=== PATIENT | female | born 1990 | race Caucasian/White ===

== ENCOUNTER 2016-04-04 22:24 | Emergency (ER) | payer MEDICARE, OTHER ==
[~2016-04-04] VITALS: Ht 167.6 cm; Wt 54.5 kg
[~2016-04-04 22:24] MED LIST: ATOR10TA65 PO; BUPR100T6 PO; CLON-412 PO; CYCL-319 PO; HYDR-762 PO; LISI-313 PO; METO25TA4 PO; OMEP20CA9 PO; RIS1 PO; ZOLP10TA PO
[2016-04-04 22:38] VITALS: Ht 167.6 cm; Wt 54.5 kg
--- NOTE | 2016-04-04 23:28 | RADRPT ---
AMENDMENT: 04/04/2016 11:32:06 PM Mazin Riddle MD ADDENDUM: COMPARISON: Plain film chest dated 08/21/2015. FINDINGS: No significant blade changer interval since 08/21/2015. PROCEDURE: XR Chest. CLINICAL INDICATION: Chest pain. TECHNIQUE: Single frontal view of the chest was obtained COMPARISON: None FINDINGS: The heart and mediastinum are within normal limits. The lungs are clear. There is no pleural effusion or pneumothorax. IMPRESSION: No acute disease. RPTAT: [facility] Physician Beau Date Time Electronically viewed and signed by Stalin Riddle Physician on 04/04/2016 23:32 RS/
[2016-04-04 23:31] LABS: HEMATOCRIT 38.2 % (37.0-47.0); HEMOGLOBIN 13.1 g/dl (12.0-16.0); MEAN CORPUSCULAR HEMOGLOBIN 31.6 pg (29.0-33.0); MEAN CORPUSCULAR HGB CONC 34.4 g/dl (32.0-37.0); MEAN CORPUSCULAR VOLUME 91.8 fl (82.0-101.0); MEAN PLATELET VOLUME 8.7 fl (7.4-10.4); PLATELET COUNT 244 10^3/UL (140-440); RED BLOOD COUNT 4.16 10^6/ul (4.20-5.40); RED CELL DISTRIBUTION WIDTH 13.2 % (11.5-14.5)
[2016-04-04 23:37] LABS: ALBUMIN 4.5 g/dl (3.3-4.9); CONDITION 1; LH ANALYZER COMMENTS 1; POTASSIUM 4.6 mmol/L (3.5-5.1)
[2016-04-04 23:39] LABS: CREATININE 0.61 mg/dl (0.44-1.00)
[2016-04-04 23:40] LABS: ALBUMIN/GLOBULIN RATIO 1.8; BILIRUBIN,INDIRECT 0.2 mg/dl (0-1.1); BILIRUBIN,TOTAL 0.2 mg/dl (0.2-1.3); CALCIUM 9.1 mg/dl (8.4-10.2)
[2016-04-04 23:42] LABS: INR 0.98
[2016-04-04 23:43] LABS: PARTIAL THROMBOPLASTIN TIME 29.9 Sec (25.0-35.0)
[2016-04-04] MEDS ORDERED: ALBUTEROL 0.5% (NEB) 2.5 MG/0.5 ML AMP NEB STA (23:55)
[2016-04-04] MEDS ORDERED: IPRATROPIUM (NEB) 0.5 MG/2.5 ML AMP NEB STA (23:55)
[2016-04-04] MEDS ORDERED: morphine 4 MG/ML VIAL IV STA (23:55)
[2016-04-04] MEDS ORDERED: ONDANSETRON 4 MG INJ IV STA (23:55)
[2016-04-04 23:56] LABS: TROPONIN-I 0.016 ng/ml (0.00-0.12)
[2016-04-05] MEDS ORDERED: METHYLPREDNISOLONE 125 MG INJ IV ONE
--- NOTE | 2016-04-05 01:35 | ERD ---
ER Documentation Chief Complaint Date/Time DATE: 04/05/16 TIME: 01:34 Chief Complaint cp x 4 days hx PE 03/31 and IA 03/01 HPI This is a very pleasant 25 year female comes in with reproducible chest wall pain. Patient has been coughing in the last 2 weeks. Because of mildly productive yellowish sputum. Patient does have history of PE and IA. Denies any [place] chest pain. Denies any shortness of breath. Denies any other current complaints. ROS All systems reviewed and are negative except as per history of present illness. Medications Home Meds Active Scripts Atorvastatin Calcium (Atorvastatin Calcium) 10 Mg Tab, 10 MG PO HS, #30 TAB Prov:JEFE SELF 03/14/15 Reported Medications Cyclobenzaprine Hcl* (Cyclobenzaprine Hcl*) 10 Mg Tablet, 10 MG PO Q8 Y for MUSCLE SPASMS, #60 TAB 08/21/15 Hydrocodone Bit-Acetaminophen* ([place]*) 10-325 Mg Tablet, 1 TAB PO TID Y for PAIN, TAB 08/21/15 Metoprolol Tartrate* (Lopressor*) 25 Mg Tablet, 25 MG PO BID, #60 TAB 08/21/15 Lisinopril* (Lisinopril*) 5 Mg Tablet, 5 MG PO DAILY, #30 TAB 08/21/15 Zolpidem Tartrate* (Ambien*) 10 Mg Tablet, 10 MG PO QHS Y for INSOMNIA, TAB 03/11/15 Omeprazole* (Prilosec*) 20 Mg Capsule.dr, 20 MG PO DAILY, CAP 06/20/14 Bupropion Hcl* (Wellbutrin*) 100 Mg Tablet, 100 MG PO TID, TAB 06/20/14 Risperidone* (Risperdal*) 1 Mg Tablet, 1 MG PO HS, TAB 04/10/14 Clonazepam* (Klonopin*) 1 Mg Tablet, 1 MG PO TID, TAB 04/10/14 Allergies Allergies: Coded Allergies: prochlorperazine (Verified Allergy, Intermediate, RASH, 08/21/15) Haloperidol Lactate (Verified Allergy, Unknown, 08/21/15) Sulfa (Sulfonamide Antibiotics) (Verified Allergy, Unknown, 08/21/15) acyclovir (Verified Allergy, Unknown, 08/21/15) haloperidol (Verified Allergy, Unknown, 08/21/15) meperidine HCl (Verified Allergy, Unknown, 08/21/15) metoclopramide HCl (Verified Allergy, Unknown, 08/21/15) prochlorperazine edisylate (Verified Allergy, Unknown, 08/21/15) prochlorperazine maleate (Verified Allergy, Unknown, 08/21/15) PMhx/Soc History of Surgery: Yes (floyd,appy, ovarian cyst removed) Anesthesia Reaction: Yes Hx Neurological Disorder: No Hx Respiratory Disorders: Yes (PULMONARY EMBOLISM X2, PNEUMONIA, BRONCHITIS) Hx Cardiac Disorders: Yes (TACHY) Hx Psychiatric Problems: Yes (DEPRESSION, ANXIETY, PTSD, NIGHT TERRORS) Hx Miscellaneous Medical Probl: No Hx Alcohol Use: Yes (2 BEERS A WEEK) Hx Substance Use: Yes (marijuana) Hx Tobacco Use: Yes (3 CIGARETTES A DAY) Smoking Status: Current every day smoker Physical Exam Vitals Vital Signs Date Time Temp Pulse Resp B/P Pulse Ox O2 Delivery O2 Flow Rate FiO2 04/05/16 00:04 85 18 97 21 04/04/16 22:38 98.8 113 18 101/58 100 Physical Exam Const: [] Head: Atraumatic Eyes: Normal Conjunctiva ENT: Normal External Ears, Nose and Mouth. Neck: Full range of motion..~ No meningismus. Resp: Scattered wheezes Cardio: Regular rate and rhythm, no murmurs Abd: Soft, non tender, non distended. Normal bowel sounds Skin: No petechiae or rashes Back: No midline or flank tenderness Ext: No cyanosis, or edema Neur: Awake and alert Psych: Normal Mood and Affect Result Diagram: 04/04/16231104/04/162311 Results 24 hrs Laboratory Tests Test 04/04/16 23:12 Activated Partial Thromboplast Time 29.9Sec Alanine Aminotransferase (ALT/SGPT) 22IU/L Albumin 4.5g/dl Albumin/Globulin Ratio 1.80 Alkaline Phosphatase 36IU/L Anion Gap 18 Aspartate Amino Transf (AST/SGOT) 34IU/L B-Type Natriuretic Peptide 28PG/ML Basophils # 10^3/ul Basophils % % Blood Urea Nitrogen 8mg/dl Calcium Level 9.1mg/dl Carbon Dioxide Level 26mmol/L Chloride Level 103mmol/L Creatinine 0.61mg/dl D-Dimer 220.00ng/ml D-Dimer Comment Direct Bilirubin 0.00mg/dl Eosinophils # 10^3/ul Eosinophils % % Globulin 2.50g/dl Glucose Level 107mg/dl Hematocrit 38.2% Hemoglobin 13.1g/dl INR International Normalized Ratio 0.98 Indirect Bilirubin 0.2mg/dl Lipase 72U/L Lymphocytes # 10^3/ul Lymphocytes % % Mean Corpuscular Hemoglobin 31.6pg Mean Corpuscular Hemoglobin Concent 34.4g/dl Mean Corpuscular Volume 91.8fl Mean Platelet Volume 8.7fl Monocytes # 10^3/ul Monocytes % % Neutrophils # 10^3/ul Neutrophils % % Nucleated Red Blood Cells # 10^3/ul Nucleated Red Blood Cells % /100WBC Platelet Count 33516^3/UL Potassium Level 4.6mmol/L Prothrombin Time 13.0Sec Prothrombin Time Ratio 1.0 Red Blood Count 4.1610^6/ul Red Cell Distribution Width 13.2% Sodium Level 142mmol/L Total Bilirubin 0.2mg/dl Total Protein 7.0g/dl Troponin I 0.016ng/ml White Blood Count 5.010^3/ul Current Medications Medications (Trade) Dose Ordered Sig/Rodrigo Route PRN Reason Start Time Stop Time Status Last Admin Dose Admin Morphine Sulfate (morphine) 4 mg ONCE STAT IV 04/04/16 23:55 04/04/16 23:57 DC 04/05/16 00:09 Ondansetron HCl (Zofran Inj) 4 mg ONCE STAT IV 04/04/16 23:55 04/04/16 23:57 DC 04/05/16 00:09 Albuterol (Proventil 0.5% (Neb)) 5 mg ONCE STAT NEB 04/04/16 23:55 04/04/16 23:57 DC 04/05/16 00:03 Ipratropium [place] (Atrovent 0.02% (Neb)) 0.5 mg ONCE STAT NEB 04/04/16 23:55 04/04/16 23:57 DC 04/05/16 00:04 Methylprednisolone Sodium Succinate (Solu-Medrol) 125 mg ONCE ONCE IV 04/05/16 00:00 04/05/16 00:01 DC 04/05/16 00:09 Procedures/[facility] E[facility]: Rate/Rhythm: Normal Sinus Rhythm QRS, ST, T-waves: No changes consistent w/ acute ischemia Impression: No evidence of ischemia or arrhythmia Chest X-ray 1V Interpreted by me: Soft Tissue: No acute abnormalities Bones: No acute abnormalities Mediastinum/Cardiac Silhouette/Lungs: No acute abnormalities D-dimer is negative Medical decision making: This very pleasant patient comes in with complaints of cough and shortness of breath and chest wall pain. At this point I doubt pulmonary embolism. Patient feels much better and breath sounds are cleared after albuterol treatment. Patient be discharged home with azithromycin, albuterol, Phenergan with codeine for cough. Departure Diagnosis: Primary Impression: Bronchitis Additional Impression: Chest wall pain Condition: Stable KENAN SAMS Apr 05, 2016 01:35
[2016-04-05] MEDS ORDERED: ALBU18HF INHALATION (01:38)
[2016-04-05] MEDS ORDERED: PRED20TA PO (01:38)
[2016-04-05] MEDS ORDERED: AZIT250T94 PO (01:38)
[2016-04-05] MEDS ORDERED: HYDR-902 PO (01:38)
[2016-04-05] MEDS ORDERED: morphine 4 MG/ML VIAL IV STA (02:11)
[2016-04-05 02:38] VITALS: BP 104/66; PULSE 90; RESP 17
== END 2016-04-05 02:38 | disposition home or self-care (01) ==
LOC: E/R 22:24
DX: J20.9 Acute bronchitis, unspecified (principal); F17.210 Nicotine dependence, cigarettes, uncomplicated; R06.02 Shortness of breath
CPT/HCPCS: 36415; 71010; 80053; 83690; 83880; 84484; 85025; 85378; 85610; 85730; 93005; 96374; 96375; 96376; 99285; J2270; J2405; J2930

== ENCOUNTER 2016-06-04 21:48 | Emergency (ER) | payer MEDICARE, OTHER ==
[~2016-06-04] VITALS: Ht 167.6 cm; Wt 49.1 kg
[~2016-06-04 21:48] MED LIST changes: +ALBU18HF INHALATION; +AZIT250T94 PO; +HYDR-902 PO; +PRED20TA PO
[2016-06-04 21:54] VITALS: Ht 167.6 cm; Wt 49.1 kg
[2016-06-04] MEDS ORDERED: SOD CHLORIDE 0.9% 1,000 ML IV STA (22:25)
[2016-06-04] MEDS ORDERED: ONDANSETRON 4 MG INJ IV STA ×2 (22:25→23:51)
[2016-06-04] MEDS ORDERED: METHYLPREDNISOLONE 125 MG INJ IV STA (22:25)
[2016-06-04] MEDS ORDERED: morphine 4 MG/ML VIAL IV STA (22:25)
[2016-06-04] MEDS ORDERED: IPRATROPIUM (NEB) 0.5 MG/2.5 ML AMP NEB STA (22:25)
[2016-06-04] MEDS ORDERED: ALBUTEROL 0.083% (NEB) 2.5 MG/3 ML AMP NEB STA (22:25)
--- NOTE | 2016-06-04 22:42 | ERD ---
ER Documentation Chief Complaint Date/Time DATE: 06/04/16 TIME: 22:30 Chief Complaint states referred by pmd for blood works. c/o sob, body pain HPI Otherwise 25-year-old female with a history of pulmonary embolism in 2015, cardiomyopathy and VA in 2016, chronic bronchitis, anxiety, and multiple surgeries, presents to the emergency department complaining of shortness of breath 1 month, bilateral "kidney pain", nausea, diarrhea, polyarthritic pain, swelling of bilateral hands and feet, and pleuritic chest pain. Patient has recently been seen by her primary care physician as well as mail distributor. Patient states she was seen by her mail distributor on 26 May and underwent a full workup for similar symptoms. At that time lab work was drawn, chest x-ray was performed as well as a spiral CT of her chest with contrast. All diagnostic imaging was unremarkable for pulmonary embolism. Patient states she is concerned however regarding her lab work and ongoing symptoms. Patient states that she believes her lab work demonstrates severe anemia. Patient states she currently is taking 2 mg of Klonopin 3 times a day for anxiety as well as [place]ial[place] 10/325 every 6 hours as needed for pain. Patient uses an albuterol inhaler as needed for shortness of breath. Patient states her current medication regimen is not helping her symptoms. Patient denies any vomiting, dysuria, hematuria, vaginal bleeding or vaginal discharge. ROS All systems reviewed and are negative except as per history of present illness. Medications Home Meds Active Scripts Naproxen* (Naprosyn*) 500 Mg Tablet, 500 MG PO BID for 10 Days, TAB Prov:JESSI HAHN PA-C 06/05/16 Ondansetron (Ondansetron Odt) 4 Mg Tab.rapdis, 4 MG PO Q6H Y for NAUSEA AND/OR VOMITING for 10 Days, TAB Prov:JESSI HAHN PA-C 06/05/16 Ferrous Sulfate* (Ferrous Sulfate*) 325 Mg Tabec, 325 MG PO DAILY for 30 Days, TAB Prov:JESSI HAHN PA-C 06/05/16 Oxycodone HCl/Acetaminophen (Percocet 10-325 mg Tablet) 1 Each Tablet, 1 EACH PO Q12, #7 TAB Prov:JESSI HAHN PA-C 06/05/16 Hydrocodone/Acetaminophen ([place] 10-325 Tablet) 1 Each Tablet, 1 EACH PO TID for PAIN, #20 TAB Prov:KENAN SAMS. 04/05/16 Albuterol Sulfate* (Ventolin HFA*) 18 Gm Hfa.aer.ad, 2 PUFF INHALATION Q4H, #1 INHALER Prov:KENAN SAMS. 04/05/16 Prednisone* (Prednisone*) 20 Mg Tab, 40 MG PO DAILY for 4 Days, TAB Prov:KENAN SAMS. 04/05/16 Azithromycin* (Zithromax*) 250 Mg Tablet, 250 MG PO .SylviaPACK DIRECTED, #6 TAB TAKE 500 MG (2 TABS) THE FIRST DAY THEN 250 MG (1 TAB) DAYS 2-5 Prov:KENAN SAMS. 04/05/16 Atorvastatin Calcium (Atorvastatin Calcium) 10 Mg Tab, 10 MG PO HS, #30 TAB Prov:JEFE SELF 03/14/15 Reported Medications Cyclobenzaprine Hcl* (Cyclobenzaprine Hcl*) 10 Mg Tablet, 10 MG PO Q8 Y for MUSCLE SPASMS, #60 TAB 08/21/15 Hydrocodone Bit-Acetaminophen* ([place]*) 10-325 Mg Tablet, 1 TAB PO TID Y for PAIN, TAB 08/21/15 Metoprolol Tartrate* (Lopressor*) 25 Mg Tablet, 25 MG PO BID, #60 TAB 08/21/15 Lisinopril* (Lisinopril*) 5 Mg Tablet, 5 MG PO DAILY, #30 TAB 08/21/15 Zolpidem Tartrate* (Ambien*) 10 Mg Tablet, 10 MG PO QHS Y for INSOMNIA, TAB 03/11/15 Omeprazole* (Prilosec*) 20 Mg Capsule.dr, 20 MG PO DAILY, CAP 06/20/14 Bupropion Hcl* (Wellbutrin*) 100 Mg Tablet, 100 MG PO TID, TAB 06/20/14 Risperidone* (Risperdal*) 1 Mg Tablet, 1 MG PO HS, TAB 04/10/14 Clonazepam* (Klonopin*) 1 Mg Tablet, 1 MG PO TID, TAB 04/10/14 Allergies Allergies: Coded Allergies: prochlorperazine (Verified Allergy, Intermediate, RASH, 08/21/15) Haloperidol Lactate (Verified Allergy, Unknown, 08/21/15) Sulfa (Sulfonamide Antibiotics) (Verified Allergy, Unknown, 08/21/15) acyclovir (Verified Allergy, Unknown, 08/21/15) haloperidol (Verified Allergy, Unknown, 08/21/15) meperidine HCl (Verified Allergy, Unknown, 08/21/15) metoclopramide HCl (Verified Allergy, Unknown, 08/21/15) prochlorperazine edisylate (Verified Allergy, Unknown, 08/21/15) prochlorperazine maleate (Verified Allergy, Unknown, 08/21/15) PMhx/Soc History of Surgery: Yes (floyd,appy, ovarian cyst removed) Anesthesia Reaction: Yes Hx Neurological Disorder: No Hx Respiratory Disorders: Yes (PULMONARY EMBOLISM X2, PNEUMONIA, BRONCHITIS) Hx Cardiac Disorders: Yes (TACHY) Hx Psychiatric Problems: Yes (DEPRESSION, ANXIETY, PTSD, NIGHT TERRORS) Hx Miscellaneous Medical Probl: No Hx Alcohol Use: Yes (2 BEERS A WEEK) Hx Substance Use: Yes (marijuana) Hx Tobacco Use: Yes (3 CIGARETTES A DAY) Smoking Status: Current every day smoker Physical Exam Vitals Vital Signs Date Time Temp Pulse Resp B/P Pulse Ox O2 Delivery O2 Flow Rate FiO2 06/04/16 23:11 88 22 97 21 06/04/16 21:54 98.3 94 20 114/78 98 Physical Exam Const: Well-developed, well-nourished, in moderate distress Head: Atraumatic Eyes: Normal Conjunctiva ENT: Normal External Ears, Nose and Mouth. Neck: Full range of motion..~ No meningismus. Resp: Slight expiratory wheeze auscultated along the right upper lung. No rales or rhonchi appreciated Cardio: Regular rate and rhythm, no murmurs Abd: Soft, non tender, non distended. Normal bowel sounds Skin: No petechiae or rashes Back: No midline or flank tenderness Ext: No cyanosis, or edema Neur: Awake and alert Psych: Anxious, crying at bedside Result Diagram: 06/04/168 06/04/16 7337 Results 24 hrs Laboratory Tests Test 06/04/16 22:55 White Blood Count 4.310^3/ul Red Blood Count 3.8110^6/ul Hemoglobin 11.9g/dl Hematocrit 35.8% Mean Corpuscular Volume 94.0fl Mean Corpuscular Hemoglobin 31.2pg Mean Corpuscular Hemoglobin Concent 33.2g/dl Red Cell Distribution Width 13.0% Platelet Count 66522^3/UL Mean Platelet Volume 11.3fl Neutrophils % 30.3% Lymphocytes % 57.9% Monocytes % 8.7% Eosinophils % 1.9% Basophils % 1.2% Nucleated Red Blood Cells % 0.0/100WBC Neutrophils # 1.310^3/ul Lymphocytes # 2.510^3/ul Monocytes # 0.410^3/ul Eosinophils # 0.110^3/ul Basophils # 0.110^3/ul Nucleated Red Blood Cells # 0.010^3/ul Urine Color LT. YELLOW Urine Clarity CLEAR Urine pH 6.5 Urine Specific [place] <=1.005 Urine Ketones NEGATIVE Urine Nitrite NEGATIVE Urine Bilirubin NEGATIVE Urine Urobilinogen 0.2 E.U./dL Urine Leukocyte Esterase NEGATIVE Urine Hemoglobin NEGATIVE Urine Glucose NEGATIVE% Urine Total Protein NEGATIVE Sodium Level 136mmol/L Potassium Level 4.7mmol/L Chloride Level 107mmol/L Carbon Dioxide Level 23mmol/L Anion Gap 11 Blood Urea Nitrogen 7mg/dl Creatinine 0.65mg/dl Glucose Level 104mg/dl Calcium Level 9.1mg/dl Total Bilirubin 0.1mg/dl Direct Bilirubin 0.00mg/dl Indirect Bilirubin 0.1mg/dl Aspartate Amino Transf (AST/SGOT) 40IU/L Alanine Aminotransferase (ALT/SGPT) 17IU/L Alkaline Phosphatase 43IU/L Troponin I < 0.012ng/ml Total Protein 7.1g/dl Albumin 4.3g/dl Globulin 2.80g/dl Albumin/Globulin Ratio 1.53 Lipase 80U/L Current Medications Medications (Trade) Dose Ordered Sig/Rodrigo Route PRN Reason Start Time Stop Time Status Last Admin Dose Admin Sodium Chloride (NS) 1,000 ml @ 1,000 mls/hr Q1H STAT IV 06/04/16 22:25 06/04/16 23:24 DC 06/04/16 22:57 Morphine Sulfate (morphine) 4 mg ONCE STAT IV 06/04/16 22:25 06/04/16 22:30 DC 06/04/16 22:58 Ondansetron HCl (Zofran Inj) 4 mg ONCE STAT IV 06/04/16 22:25 06/04/16 22:30 DC 06/04/16 22:57 Albuterol (Proventil 0.083% (Neb)) 5 mg ONCE STAT NEB 06/04/16 22:25 06/04/16 22:31 DC 06/04/16 23:11 Ipratropium [place] (Atrovent 0.02% (Neb)) 1.5 mg ONCE STAT NEB 06/04/16 22:25 06/04/16 22:31 DC 06/04/16 23:11 Methylprednisolone Sodium Succinate (Solu-Medrol) 125 mg ONCE STAT IV 06/04/16 22:25 06/04/16 22:31 DC 06/04/16 22:57 Hydromorphone HCl (Dilaudid) 1 mg ONCE STAT IV 06/04/16 23:51 06/04/16 23:52 DC 06/05/16 00:05 Ondansetron HCl (Zofran Inj) 4 mg ONCE STAT IV 06/04/16 23:51 06/04/16 23:52 DC 06/05/16 00:05 Procedures/[facility] EKG: Interpreted by Dr. Forte Rate/Rhythm: Normal Sinus Rhythm QRS, ST, T-waves: No changes consistent w/ acute ischemia Impression: No evidence of ischemia or arrhythmia 2300-when nurse approached at bedside, patient stated "push the morphine fast and I will need Dilaudid after this." Cures report generated demonstrating multiple recent prescription filled for narcotics. Patient provided copies of lab work from her most recent visit on May 26. Hemoglobin is measured at 12.6. Urine demonstrated nitrites. Otherwise unremarkable. Patient underwent spiral CT with contrast to rule out pulmonary embolism on May 26 which was negative. Patient's symptoms have not changed since that time. She denies any recent surgery, prolonged immobility, unilateral lower extremity redness and swelling. Vital signs reviewed. Patient afebrile, non-tachycardic, normotensive and non- hypoxic upon arrival. This is a 25-year-old female with extensive medical history and chronic pain who presents with multiple symptoms including shortness of breath, body aches, flank pain, and joint pain. Patient received an albuterol nebulizer treatment while in the emergency department and reports improvement of breathing symptoms. She received a bolus of fluids as well as IV pain medication and steroids. CBC showed no evidence of systemic infection or severe anemia. Patient is not actively bleeding and labs are unchanged compared to blood work drawn 7 days ago. CMP showed no evidence of electrolyte abnormalities, severe acidosis, alkalosis , renal failure, or liver disease. Lipase showed no evidence of acute pancreatitis. UA showed no evidence of acute infection or hematuria. Urine test was negative. Given patient's history, physical, vital signs, and recent workup for pulmonary embolism I do not believe an additional CT angiogram is warranted at this time. Patient became angry prior to discharge, stating that we were doing nothing for her pain control, and demanded to be admitted to the hospital. However at this time there is no indication from her physical exam, laboratory workup, or history that would warrant admission. 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 Based on patient's history of present illness and physical examination the decision was made to discharge. The patient was re-evaluated after ED treatment and stabilizing measures, and symptoms have improved. There is no evidence of life threatening injuries or illnesses at this time. On re-examination, patient resting in no distress, stable vital signs, reports feeling better and safe for discharge with outpatient follow up with PMD in 1-2 days. Patient given return precautions. Departure Diagnosis: Primary Impression: Flank pain Additional Impressions: Shortness of breath Pleuritic pain Drug-seeking behavior JESSI HAHN PA-C Jun 04, 2016 22:41
[2016-06-04 23:34] LABS: ADD SCAN DIFF NO
[2016-06-04 23:36] LABS: BASOPHIL # 0.1 10^3/ul (0.0-0.1); BASOPHILS % 1.2 % (0.0-2.0); EOSINOPHILS # 0.1 10^3/ul (0.0-0.5); EOSINOPHILS % 1.9 % (0.0-7.0); HEMATOCRIT 35.8 % (37.0-47.0); HEMOGLOBIN 11.9 g/dl (12.0-16.0); LYMPHOCYTES # 2.5 10^3/ul (0.8-2.9); LYMPHOCYTES % 57.9 % (15.0-51.0); MEAN CORPUSCULAR HEMOGLOBIN 31.2 pg (29.0-33.0); MEAN CORPUSCULAR HGB CONC 33.2 g/dl (32.0-37.0); MEAN PLATELET VOLUME 11.3 fl (7.4-10.4); MONOCYTE # 0.4 10^3/ul (0.3-0.9); MONOCYTES % 8.7 % (0.0-11.0); NEUTROPHIL # 1.3 10^3/ul (1.6-7.5); NEUTROPHILS % 30.3 % (39.0-77.0); PLATELET COUNT 187 10^3/UL (140-415); RED BLOOD COUNT 3.81 10^6/ul (4.20-5.40); WHITE BLOOD COUNT 4.3 10^3/ul (4.8-10.8)
[2016-06-04] MEDS ORDERED: HYDROmorphONE 1 MG/ML SYG IV STA (23:51)
[2016-06-04 23:52] LABS: ADD UMIC NO; URINE BILIRUBIN (Dip) NEGATIVE (NEGATIVE); URINE BLOOD (Dip) NEGATIVE (NEGATIVE); URINE COLOR LT. YELLOW (YELLOW); URINE GLUCOSE (Dip) NEGATIVE (NEGATIVE); URINE KETONES (Dip) NEGATIVE (NEGATIVE); URINE LEUKOCYTE ESTERASE (Dip) NEGATIVE (NEGATIVE); URINE NITRITE (Dip) NEGATIVE (NEGATIVE); URINE TOTAL PROTEIN (Dip) NEGATIVE (NEGATIVE); URINE UROBILINOGEN (Dip) 0.2 E.U./dL (0.1-1.0)
[2016-06-04 23:56] LABS: ALANINE AMINOTRANSFERASE 17 IU/L (13-69); ALBUMIN 4.3 g/dl (3.3-4.9); ALBUMIN/GLOBULIN RATIO 1.53; ALKALINE PHOSPHATASE 43 IU/L (42-121); ANION GAP 11 (8-16); ASPARTATE AMINO TRANSFERASE 40 IU/L (15-46); BILIRUBIN,INDIRECT 0.1 mg/dl (0-1.1); BILIRUBIN,TOTAL 0.1 mg/dl (0.2-1.3); BLOOD UREA NITROGEN 7 mg/dl (7-20); CALCIUM 9.1 mg/dl (8.4-10.2); CARBON DIOXIDE 23 mmol/L (21-31); CHLORIDE 107 mmol/L (97-110); CREATININE 0.65 mg/dl (0.44-1.00); GLUCOSE 104 mg/dl (70-220); POTASSIUM 4.7 mmol/L (3.5-5.1); SODIUM 136 mmol/L (135-144); TOTAL PROTEIN 7.1 g/dl (6.1-8.1)
[2016-06-05 00:08] LABS: TROPONIN-I < 0.012 ng/ml (0.00-0.12)
[2016-06-05] MEDS ORDERED: OXYC-209 PO (00:44)
[2016-06-05] MEDS ORDERED: ONDA4TAB14 PO (00:44)
[2016-06-05] MEDS ORDERED: NAPR-260 PO (00:44)
[2016-06-05] MEDS ORDERED: FER325 PO (00:44)
== END 2016-06-05 00:57 | disposition home or self-care (01) ==
LOC: FTE 21:48
DX: R10.9 Unspecified abdominal pain (principal); R07.89 Other chest pain; F17.210 Nicotine dependence, cigarettes, uncomplicated; Z72.89 Other problems related to lifestyle
CPT/HCPCS: 36415; 80053; 81003; 83690; 84484; 85025; 93005; 94664; 96374; 96375; 96376; 99284; J1170; J2270; J2405; J2930; J7030